=== PATIENT | male | born 1965 | race Hispanic/Latino ===

== ENCOUNTER 2016-10-18 22:37 | Emergency (ER) | payer BC ==
[2016-10-18 22:43] VITALS: RESP 20; O2SAT 100
[2016-10-18] MEDS ORDERED: Aspirin 325 mg EC Tablets PO STA (23:00)
--- NOTE | 2016-10-18 23:15 | C.PDOC ---
History Of Present Illness 51 y/o male presents to ED with complaint of chest discomfort over the last few days. Patient reports that he lives an active lifestyle, frequently swims and bikes, and notes that he does not feel chest discomfort while exercising but sometimes feels it afterwards. He reports that pain will worsen when laying down. He describes pain as vague and denies any associated nausea, vomiting, arm pain, SOB, or diaphoresis. Patient reports history of anxiety and states he begins to feel increasingly anxious during chest discomfort episodes and sometimes feels palpitations. Latest episode was at 5pm today. Patient notes he is new to area but has seen Dr. Flynn one time outpatient. Time Seen by Provider: 10/18/16 22:55 Chief Complaint (Nursing): Chest Pain History Per: Patient History/Exam Limitations: no limitations Onset/Duration Of Symptoms: Days, Intermittent Episodes Current Symptoms Are (Timing): Better Quality: "Pain", Other (vague) Associated Symptoms: denies: Nausea, Dyspnea, Diaphoresis Exacerbating Factors: Other (laying down) Recent travel outside of the [place]: No Past Medical History Reviewed: Historical Data, Nursing Documentation, Vital Signs Vital Signs: Last Vital Signs Temp 98.1 F 10/18/16 22:40 Pulse 55 L 10/18/16 22:40 Resp 20 10/18/16 22:40 BP 130/83 10/18/16 22:40 Pulse Ox 100 10/18/16 23:18 - Medical History PMH: Anxiety Family History: States: Unknown Family Hx - Social History Hx Alcohol Use: Yes (wine) Hx Substance Use: No - Immunization History Hx Tetanus Toxoid Vaccination: No Hx Influenza Vaccination: No Hx Pneumococcal Vaccination: No Review Of Systems Except As Marked, All Systems Reviewed And Found Negative. Constitutional: Negative for: Fever, Chills Cardiovascular: Positive for: Chest Pain Respiratory: Negative for: Cough, Shortness of Breath, Wheezing Gastrointestinal: Negative for: Nausea, Vomiting Skin: Negative for: Rash Physical Exam - Physical Exam Appears: Non-toxic, No Acute Distress Skin: Normal Color, Warm, Dry Head: Atraumatic, Normacephalic Chest: Symmetrical Cardiovascular: Rhythm Regular, No Murmur Respiratory: Normal Breath Sounds, No Rales, No Rhonchi, No Wheezing Gastrointestinal/Abdominal: Soft, No Tenderness, No Guarding, No Rebound Back: Normal Inspection Extremity: Normal ROM, Capillary Refill (< 2 sec. ) Neurological/Psych: Oriented x3, Normal Speech, Normal Cognition ED Course And Treatment - Laboratory Results Result Diagrams: 10/18/16 23:55 10/18/16 23:55 Lab Interpretation: No Acute Changes ECG: Interpreted By Me ECG Rhythm: Sinus Bradycardia ECG Interpretation: No Acute Changes O2 Sat by Pulse Oximetry: 100 (RA) Pulse Ox Interpretation: Normal - Radiology CXR: Interpreted by Me CXR Interpretation: Yes: No Acute Disease Progress Note: EKG, CXR, bloodwork. Patient notes he took aspirin prior to arrival. Reevaluation Time: 02:03 Reassessment Condition: Unchanged (Patient remains comfortable.) - Physician Consult Information Time Consulting Physician Contacted: 02:04 Physician Contacted: Kaycee Flynn Outcome Of Conversation: Patient to stay for cardiac observation. Disposition - Disposition Disposition: HOSPITALIZED Disposition Time: 02:06 Condition: STABLE - POA Present On Arrival: None - Clinical Impression Clinical Impression: Chest pain - Scribe Statement The provider has reviewed the documentation as recorded by the Kika Polanco Provider Scribe Attestation: All medical record entries made by the Scribe were at my direction and personally dictated by me. I have reviewed the chart and agree that the record accurately reflects my personal performance of the history, physical exam, medical decision making, and the department course for this patient. I have also personally directed, reviewed, and agree with the discharge instructions and disposition.
[2016-10-18] MEDS ORDERED: Aspirin 325 mg EC Tablets PO ONE (23:16)
[2016-10-19 00:09] LABS: BASO % 0.7 % (0.0-2.0); EOS # 0.1 K/uL (0.0-0.7); EOS % 1.6 % (0.0-4.0); HEMATOCRIT 41.4 % (35.0-51.0); LYMPH # 1.7 K/uL (1.0-4.3); LYMPH % 30.5 % (20.0-40.0); MEAN CORPUSCULAR HEMOGLOBIN 28.9 pg (27.0-31.0); MEAN CORPUSCULAR HGB CONC 33.2 g/dL (33.0-37.0); MEAN PLATELET VOLUME 9.9 fL (7.2-11.7); MONO # 0.5 K/uL (0.0-0.8); MONO % 9.7 % (0.0-10.0); RED CELL DISTRIBUTION WIDTH 13.3 % (11.5-14.5); WHITE BLOOD COUNT 5.5 K/uL (4.8-10.8)
[2016-10-19 00:26] LABS: CHLORIDE 105 mmol/L (98-107); POTASSIUM 3.4 mmol/L (3.6-5.2); SODIUM 139 mmol/L (132-148)
[2016-10-19 00:28] LABS: BILIRUBIN,TOTAL 0.6 mg/dL (0.2-1.3); CARBON DIOXIDE 20 mmol/L (22-30); GFR AFRICAN-AMERICAN > 60
[2016-10-19 00:29] LABS: ALB/GLOB RATIO 1.6 (1.0-2.1); ALKALINE PHOSPHATASE 44 U/L (38-126); ALT/SGPT 27 U/L (21-72); AST/SGOT 27 U/L (17-59); BLOOD UREA NITROGEN 15 mg/dL (9-20); CALCIUM 8.9 mg/dl (8.6-10.4); GLUCOSE,RANDOM 90 mg/dL (75-110); TOTAL PROTEIN 6.9 g/dL (6.3-8.3)
[2016-10-19 03:18] VITALS: BP 116/79; PULSE 59; TEMP 98
--- NOTE | 2016-10-19 08:36 | RAD ---
PROCEDURE: CHEST RADIOGRAPH, 1 VIEW HISTORY: chest pain COMPARISON: None available. FINDINGS: LUNGS: No focal infiltrate or effusion. Mild venous congestion. Upper lobe granulomatous changes. Right hilar prominence. PLEURA: No pneumothorax or pleural fluid seen. CARDIOVASCULAR: Normal. OSSEOUS STRUCTURES: No significant abnormalities. VISUALIZED UPPER ABDOMEN: Normal. OTHER FINDINGS: None. IMPRESSION: No focal infiltrate or effusion. Mild venous congestion. Upper lobe granulomatous changes. Right hilar prominence.
--- NOTE | 2016-10-30 23:27 | CARD ---
APPROVED REPORT EKG Measurement Heart [id number] CT [id number] <Conclusion> Sinus bradycardia Otherwise normal ECG
== END 2016-10-19 03:40 | disposition left against medical advice (07) ==
LOC: C.ER 22:37 → C.9E 10-19 02:06 → INTOOBSV 10-19 02:06 → UNDOADMOB 10-19 02:06 → UNDODISIN 10-19 03:40 → UNDODISOB 10-19 03:40
DX: R07.89 Other chest pain (principal)